=== PATIENT | female | born 1960 | race Caucasian/White ===

== ENCOUNTER → 2019-03-07 10:40 | Outpatient (CLI) | payer OTHER, SELFPAY ==
--- NOTE | 2019-03-07 10:44 | DI.RAD.S_ITS ---
PROCEDURE: XR CERVICAL SPINE 2V OR 3V INDICATIONS: Neck pain; hx of DJD and osteophytes TECHNIQUE: A set of 3 view(s) of the cervical spine were acquired. COMPARISON: None. FINDINGS: Bones: No fractures or dislocations to the T1 level. The lateral masses of C1 appear intact on the odontoid view. No suspicious bony lesions. Moderate degenerative disc disease is present at C4-5 and moderately severe degenerative disc disease is present at C5-6 through C6-7 and present to a slightly lesser degree at C7-T1. Soft tissues: No prevertebral soft tissue swelling. IMPRESSION: Multilevel degenerative disc disease and facet osteoarthritis from the middle third of the lower thirds of the cervical spine to the degree that spinal and foraminal stenosis likely is present from C4 inferiorly. Dictated by: Chung Marcum M.D. on 03/07/2019 at 11:15 Approved by: Chung Marcum M.D. on 03/07/2019 at 11:16
--- NOTE | 2019-03-07 10:44 | DI.RAD.S_ITS ---
PROCEDURE: XR THORACIC SPINE 3V INDICATIONS: T spine pain mid back; hx of DJD and osteophytes in C spine TECHNIQUE: 3 views of the thoracic spine were acquired. COMPARISON: None. FINDINGS: Bones: No fractures or dislocations. No suspicious bony lesions. 12 pairs of ribs are noted, and appear intact where visualized. Soft tissues: No paravertebral stripe thickening. IMPRESSION: Mild degenerative disc disease along the thoracic spine without fracture or subluxation. There is slight anterior wedging of the T11 vertebral body but this is within the range of normal anatomic variation. Dictated by: Chung Marcum M.D. on 03/07/2019 at 11:16 Approved by: Chung Marcum M.D. on 03/07/2019 at 11:17
== END ==
PROVIDERS: PCP Physician Assistant; Visit Provider Physician Assistant
DX: M54.2 Cervicalgia (principal); M54.6 Pain in thoracic spine; M50.323 Other cervical disc degeneration at C6-C7 level; M51.34 Other intervertebral disc degeneration, thoracic region
CPT/HCPCS: 72040; 72072

== ENCOUNTER → 2019-08-08 09:46 | Outpatient (CLI) | payer OTHER, SELFPAY ==
--- NOTE | 2019-08-08 09:49 | DI.US.S_ITS ---
PROCEDURE: US THYROID INDICATIONS: ELEVATED TSH TECHNIQUE: Real-time scanning was performed of the thyroid gland, with image documentation. COMPARISON: None. FINDINGS: Right: Thyroid lobe measures 4.4 x 0.8 x 1.8 cm, and is homogeneous in echotexture. Left: Thyroid lobe measures 4.4 x 0.9 x 1.3 cm, and is homogenous in echotexture. Isthmus: 1.5 mm thick. IMPRESSION: Normal thyroid. Dictated by: Jorge DUTTON Interpreted: Blanca Bermeo MD on 08/08/2019 at 13:40 Approved by: Blanca Bermeo M.D. on 08/08/2019 at 16:10
== END ==
PROVIDERS: PCP Physician Assistant; Visit Provider Physician Assistant
DX: E03.9 Hypothyroidism, unspecified (principal); R79.89 Other specified abnormal findings of blood chemistry
CPT/HCPCS: 76536

== ENCOUNTER → 2020-05-21 09:29 | Outpatient (CLI) | payer OTHER, SELFPAY ==
[2020-05-21 10:35] LABS: Cholesterol 249 mg/dL (140-199); Glucose 100 mg/dL (80-110); HDL Cholesterol 55 mg/dL (40-60); LDL Cholesterol Calculated 150 mg/dL (<100); Triglycerides 221 mg/dL (35-150)
[2020-05-21 10:50] LABS: Free T3, Triiodothyronine Free 3.32 pg/mL (2.77-5.27)
[2020-05-21 11:04] LABS: Thyroid Stimulating Hormone 2.89 uIU/mL (0.47-4.68)
[2020-05-21 13:49] LABS: Hemoglobin A1C% w Est Avg Glu 5.7 % (4.0-6.0)
[2020-05-22 09:30] LABS: Amylase 37 U/L (30-110); Lipase 65 U/L (23-300)
[2020-05-22 09:33] LABS: Rheumatoid Factor 9.5 IU/mL (<12.0)
[2020-05-22 09:41] LABS: Erythrocyte Sedimentation Rate 6 MM/HR (0-20)
== END ==
PROVIDERS: PCP Nurse Practitioner; Referring Provider Nurse Practitioner; Visit Provider Nurse Practitioner
DX: E03.9 Hypothyroidism, unspecified (principal); E78.2 Mixed hyperlipidemia; R73.09 Other abnormal glucose; R76.8 Other specified abnormal immunological findings in serum; R79.82 Elevated C-reactive protein (CRP); Z86.2 Personal history of diseases of the blood and blood-forming organs and certain disorders involving the immune mechanism
CPT/HCPCS: 36415; 80061; 82150; 82947; 83036; 83690; 84439; 84443; 84481; 85651; 86430

== ENCOUNTER → 2020-12-06 11:40 | Outpatient (CLI) | payer OTHER, SELFPAY ==
--- NOTE | 2020-12-06 | DI.MG.S_ITS ---
BILATERAL DIGITAL SCREENING MAMMOGRAM 3D/2D WITH CAD: 12/06/2020 CLINICAL: Routine screening. Family history of breast cancer. Comparison is made to exams dated: 10/18/2017 mammogram and 05/04/2019 mammogram - outside location. There are scattered fibroglandular elements in both breasts. Current study was also evaluated with a Computer Aided Detection (CAD) system. No significant masses, calcifications, or other findings are seen in either breast. There has been no significant interval change. IMPRESSION: NEGATIVE There is no mammographic evidence of malignancy. A 1 year screening mammogram is recommended. This exam was interpreted at Station ID: [id number]. NOTE: For mammograms, a report in lay terms will be sent to the patient. Approximately 15% of breast malignancies will not be visualized mammographically. In the management of a palpable breast mass, a negative mammogram must not discourage biopsy of a clinically suspicious lesion. Electronically Signed By: Mark miles/alexandre:12/06/2020 18:04:14 letter sent: Normal Exam ACR BI-RADS Category 1: Negative 3341F
== END ==
PROVIDERS: PCP Nurse Practitioner; Referring Provider Nurse Practitioner; Visit Provider Nurse Practitioner
DX: Z12.31 Encounter for screening mammogram for malignant neoplasm of breast (principal); Z80.3 Family history of malignant neoplasm of breast
CPT/HCPCS: 77063; 77067

== ENCOUNTER → 2021-04-15 12:10 | Outpatient (CLI) | payer OTHER, SELFPAY ==
--- NOTE | 2021-04-15 12:11 | DI.RAD.S_ITS ---
PROCEDURE: XR SHOULDER RT MIN 2V INDICATIONS: pain TECHNIQUE: 3 views of the shoulder were acquired. COMPARISON: None. FINDINGS: Bones: No acute fracture identified. Severe AC osteoarthritis. Mild glenohumeral osteoarthritis. Lateral downsloping appearance of the acromion. Soft tissues: No suspicious soft tissue calcifications. IMPRESSION: Lateral downsloping appearance of the acromion. Right shoulder osteoarthritis as above Dictated by: Abner Mendez M.D. on 04/15/2021 at 13:28 Approved by: Abner Mendez M.D. on 04/15/2021 at 13:29
== END ==
PROVIDERS: PCP Nurse Practitioner; Referring Provider Physician Assistant; Visit Provider Physician Assistant
DX: M25.511 Pain in right shoulder (principal); M19.011 Primary osteoarthritis, right shoulder
CPT/HCPCS: 73030

== ENCOUNTER → 2022-01-29 07:16 | Outpatient (CLI) | payer OTHER, SELFPAY ==
--- NOTE | 2022-01-29 | DI.MG.S_ITS ---
BILATERAL DIGITAL SCREENING MAMMOGRAM 3D/2D WITH CAD: 01/29/2022 CLINICAL: Routine screening. Family history of breast cancer. Comparison is made to exams dated: 12/06/2020 mammogram - [facility], 05/04/2019 mammogram, and 10/18/2017 mammogram - outside location. There are scattered fibroglandular elements in both breasts. Current study was also evaluated with a Computer Aided Detection (CAD) system. There are benign calcifications in both breasts. No significant masses, calcifications, or other findings are seen in either breast. There has been no significant interval change. IMPRESSION: BENIGN There is no mammographic evidence of malignancy. A 1 year screening mammogram is recommended. This exam was interpreted at Station ID: [id number]. NOTE: For mammograms, a report in lay terms will be sent to the patient. Approximately 15% of breast malignancies will not be visualized mammographically. In the management of a palpable breast mass, a negative mammogram must not discourage biopsy of a clinically suspicious lesion. Electronically Signed By: Mark miles/alexandre:01/29/2022 09:04:32 letter sent: Normal Exam ACR BI-RADS Category 2: Benign Finding(s) 3342F
== END ==
PROVIDERS: PCP Nurse Practitioner; Referring Provider Nurse Practitioner; Visit Provider Nurse Practitioner
DX: Z12.31 Encounter for screening mammogram for malignant neoplasm of breast (principal); Z80.3 Family history of malignant neoplasm of breast
CPT/HCPCS: 77063; 77067

== ENCOUNTER → 2022-10-26 10:42 | Outpatient (CLI) | payer OTHER, SELFPAY ==
--- NOTE | 2022-10-26 10:43 | DI.RAD.S_ITS ---
PROCEDURE: XR DEXA AXIAL SKELETON INDICATIONS: post menopausal osteoporosis COMPARISON: None. FINDINGS: This blank DEXA report has been sent in error by the PACS system. The correct and complete report will be forthcoming in 1-2 days. Thank you for your patience and understanding. Dictated by: Farzaneh Johnston MD, PhD on 10/27/2022 at 13:21 Approved by: Farzaneh Johnston MD, PhD on 10/27/2022 at 13:21
== END ==
PROVIDERS: PCP Nurse Practitioner; Referring Provider Nurse Practitioner; Visit Provider Nurse Practitioner
DX: Z13.820 Encounter for screening for osteoporosis (principal); Z78.0 Asymptomatic menopausal state; M85.88 Other specified disorders of bone density and structure, other site; Z90.710 Acquired absence of both cervix and uterus
CPT/HCPCS: 77080

== ENCOUNTER → 2023-01-01 08:17 | Outpatient (CLI) | payer OTHER, SELFPAY ==
[2023-01-01 09:07] LABS: Add Manual Diff / Slide Review NO; Basophils Absolute Auto 0 /uL (0-100); Basophils Percent Auto 0.7 % (0-2); Eosinophils Absolute Auto 100 /uL (0-450); Eosinophils Percent Auto 2.3 % (2-4); Hematocrit 34.3 % (36-46); Hemoglobin 11.6 g/dL (12.0-16.0); Lymphocytes Absolute Auto 1000 /uL (1100-4500); Lymphocytes Percent Auto 28.1 % (25-40); Mean Corpuscular HGB Conc 33.7 % (30-36); Mean Corpuscular Volume 91.8 fL (80-100); Monocytes Absolute Auto 300 /uL (0-900); Neutrophils Absolute Auto 2100 /uL (1500-7000); Neutrophils Percent Auto 60.9 % (50-75); Platelet Count 230 X10^3/uL (150-400); Red Blood Cell Count 3.74 X10^6/uL (4.0-5.2); White Blood Cell Count 3.5 X10^3/uL (4.5-11.0)
[2023-01-01 09:13] LABS: Hemoglobin A1C% w Est Avg Glu 5.2 % (4.0-6.0)
[2023-01-01 09:41] LABS: Alanine Aminotransferase 20 IU/L (<35); Albumin Globulin Ratio 1.5 (1.0-2.8); Alkaline Phosphatase 50 U/L (38-126); Aspartate Aminotransferase 24 IU/L (14-36); BUN Creatinine Ratio 22.8 (6-22); Bilirubin Total 0.4 mg/dL (0.2-1.3); Blood Urea Nitrogen 13 mg/dL (7-17); Calcium 8.7 mg/dL (8.4-10.2); Carbon Dioxide 28 mmol/L (22-32); Chloride 104 mmol/L (98-107); Cholesterol 229 mg/dL (140-199); Estimated Glomerular Filt Rate > 60 mL/min (>60); Globulin 2.6 g/dL (1.7-4.1); Glucose 99 mg/dL (80-110); HDL Cholesterol 66 mg/dL (40-60); HEMOLYSIS < 15 (0-50); LDL Cholesterol Calculated 146 mg/dL (<100); Potassium 4.5 mmol/L (3.4-5.1); Sodium 141 mmol/L (137-145); Total Protein 6.6 g/dL (6.3-8.2); Triglycerides 87 mg/dL (35-150)
[2023-01-01 10:12] LABS: Thyroid Stimulating Hormone 2.42 uIU/mL (0.47-4.68)
[2023-01-01 10:54] LABS: Hep C Virus Ab w/Reflex Quant NEGATIVE s/c (NEGATIVE)
== END ==
PROVIDERS: PCP Nurse Practitioner; Referring Provider Nurse Practitioner; Visit Provider Nurse Practitioner
DX: E78.2 Mixed hyperlipidemia (principal); Z00.00 Encounter for general adult medical examination without abnormal findings; E03.9 Hypothyroidism, unspecified; R73.03 Prediabetes; R73.01 Impaired fasting glucose; Z11.59 Encounter for screening for other viral diseases
CPT/HCPCS: 36415; 80053; 80061; 83036; 84443; 85025; 86803

== ENCOUNTER → 2023-02-04 08:40 | Outpatient (CLI) | payer OTHER, SELFPAY ==
--- NOTE | 2023-02-04 08:41 | DI.MG.S_ITS ---
BILATERAL DIGITAL SCREENING MAMMOGRAM 3D/2D WITH CAD: 02/04/2023 CLINICAL: Routine screening. Family history of breast cancer. Comparison is made to exams dated: 12/06/2020 mammogram, 01/29/2022 mammogram - [facility], and 05/04/2019 mammogram - outside location. There are scattered areas of fibroglandular density in both breasts (category b / 25%-50% glandular tissue). Current study was also evaluated with a Computer Aided Detection (CAD) system. There are benign calcifications in both breasts. There are mole markers on the left breast. No significant masses, calcifications, or other findings are seen in either breast. There has been no significant interval change. IMPRESSION: BENIGN There is no mammographic evidence of malignancy. A 1 year screening mammogram is recommended. Based on the Tyrer Cuzick model (a risk assessment model) the patient's lifetime risk is 15.3% and her 10 year risk is 7.0%. According to the ACR, ACS, and NCCN guidelines, an annual breast MRI exam along with mammogram is recommended if the patient's lifetime risk is 20% or greater. This exam was interpreted at Station ID: [id number]. NOTE: For mammograms, a report in lay terms will be sent to the patient. Approximately 15% of breast malignancies will not be visualized mammographically. In the management of a palpable breast mass, a negative mammogram must not discourage biopsy of a clinically suspicious lesion. Electronically Signed By: Waldo [email or web address]/alexandre:02/04/2023 09:30:47 letter sent: Normal Exam ACR BI-RADS Category 2: Benign Finding(s) 3342F
[2023-02-05 18:05] LABS: Fecal Immunochemical Test Negative (Negative)
== END ==
PROVIDERS: PCP Nurse Practitioner; Referring Provider Nurse Practitioner; Visit Provider Nurse Practitioner
DX: Z12.31 Encounter for screening mammogram for malignant neoplasm of breast (principal); Z80.3 Family history of malignant neoplasm of breast; Z12.11 Encounter for screening for malignant neoplasm of colon
CPT/HCPCS: 77063; 77067; 82274

== ENCOUNTER → 2023-10-19 11:32 | Outpatient (CLI) | payer OTHER, SELFPAY ==
[2023-10-19 15:18] LABS: Adenovirus Not Detected (Not Detect); B. parapertussis Not Detected (Not Detecte); Bordetella pertussis Not Detected (Not Detect); Chlamydophila pneumoniae Not Detected (Not Detect); Coronavirus 229E Not Detected (Not Detect); Coronavirus HKU1 Not Detected (Not Detect); Coronavirus NL 63 Not Detected (Not Detect); Coronavirus OC43 Not Detected (Not Detect); Human Metapneumovirus Not Detected (Not Detect); Human Rhinovirus/Enterovirus Not Detected (Not Detect); Influenza A Not Detected (Not Detect); Influenza B Not Detected (Not Detect); Mycoplasma pneumoniae Not Detected (Not Detect); Parainfluenza Virus 1 Not Detected (Not Detect); Parainfluenza Virus 2 Not Detected (Not Detect); Parainfluenza Virus 3 Not Detected (Not Detect); Parainfluenza Virus 4 Not Detected (Not Detect); Respiratory Syncytial Virus Not Detected (Not Detect); SARS- CoV-2 Not Detected (Not Detecte)
== END ==
PROVIDERS: PCP Nurse Practitioner; Visit Provider Nurse Practitioner
DX: J32.9 Chronic sinusitis, unspecified (principal)
CPT/HCPCS: 87633

== ENCOUNTER → 2023-10-25 11:06 | Outpatient (CLI) | payer OTHER, SELFPAY ==
--- NOTE | 2023-10-25 11:07 | DI.CT.S_ITS ---
PROCEDURE: CT SINUS SCREEN WO CON INDICATIONS: chronic sinsitis TECHNIQUE: Noncontrast 3.0 mm axial images acquired from the frontal sinuses to the mid-sella, with coronal and sagittal reformats. For radiation dose reduction, the following was used: automated exposure control, adjustment of mA and/or kV according to patient size. COMPARISON: None. FINDINGS: Image quality: Excellent. Sinuses: Minimal mucosal thickening is present within the maxillary sinuses. In addition, minimal scattered mucosal thickening is present in the ethmoid, frontal and sphenoid sinuses. No fluid levels. No mucous retention cysts versus polyps. Ostiomeatal Complexes: Ostiomeatal complexes are patent. Mild narrowing on the right secondary to nasal septal deviation. Miscellaneous: Visualized intra-orbital contents are normal. No fannie bullosa or paradoxical turbinate curvature. Prominent rightward there is hypertrophy of the inferior turbinates in relation to middle turbinates. nasal septal deviation. IMPRESSION: Prominent nasal septal deviation. Scattered areas of minimal mucosal thickening without fluid levels. Dictated by: Blanca Bermeo M.D. on 10/25/2023 at 16:14 Approved by: Blanca Bermeo M.D. on 10/25/2023 at 16:15
== END ==
PROVIDERS: PCP Nurse Practitioner; Referring Provider Nurse Practitioner; Visit Provider Nurse Practitioner
DX: J32.9 Chronic sinusitis, unspecified (principal); J34.2 Deviated nasal septum
CPT/HCPCS: 70486

== ENCOUNTER → 2024-01-14 08:25 | Outpatient (CLI) | payer OTHER, SELFPAY ==
--- NOTE | 2024-01-14 08:27 | DI.RAD.S_ITS ---
PROCEDURE: XR HIP W PEL IF DONE LT 2V INDICATIONS: Left hip pain TECHNIQUE: 2 views of the hip were acquired. COMPARISON: None. FINDINGS: Bones: No fractures or dislocations. No suspicious bony lesions. The visualized pelvic ring appears intact. Soft tissues: No suspicious soft tissue calcifications or masses. IMPRESSION: No displaced fracture. If there remains a high clinical concern or the patient cannot bear weight, consider cross-sectional imaging to exclude an occult fracture. Dictated by: Wili Mir M.D. on 01/14/2024 at 8:50 Approved by: Wili Mir M.D. on 01/14/2024 at 8:50
== END ==
PROVIDERS: PCP Nurse Practitioner; Referring Provider Registered Nurse; Visit Provider Registered Nurse
DX: M25.552 Pain in left hip (principal)
CPT/HCPCS: 73502

== ENCOUNTER → 2024-03-03 08:27 | Outpatient (CLI) | payer OTHER, SELFPAY ==
--- NOTE | 2024-03-03 08:29 | DI.MG.S_ITS ---
BILATERAL DIGITAL SCREENING MAMMOGRAM 3D/2D WITH CAD: 03/03/2024 CLINICAL: Routine screening. Family history of breast cancer. Comparison is made to exams dated: 02/04/2023 mammogram, 01/29/2022 mammogram, and 12/06/2020 mammogram - [facility]. There are scattered areas of fibroglandular density in both breasts (category b / 25%-50% glandular tissue). Current study was also evaluated with a Computer Aided Detection (CAD) system. There are benign calcifications in both breasts. There are mole markers on the left breast. No significant masses, calcifications, or other findings are seen in either breast. There has been no significant interval change. IMPRESSION: BENIGN There is no mammographic evidence of malignancy. A 1 year screening mammogram is recommended. Based on the Tyrer Cuzick model (a risk assessment model) the patient's lifetime risk is 14.8% and her 10 year risk is 7.0%. According to the ACR, ACS, and NCCN guidelines, an annual breast MRI exam along with mammogram is recommended if the patient's lifetime risk is 20% or greater. This exam was interpreted at Station ID: [id number]. NOTE: For mammograms, a report in lay terms will be sent to the patient. Approximately 15% of breast malignancies will not be visualized mammographically. In the management of a palpable breast mass, a negative mammogram must not discourage biopsy of a clinically suspicious lesion. Electronically Signed By: Mark miles/alexandre:03/03/2024 16:34:15 letter sent: Normal Exam ACR BI-RADS Category 2: Benign Finding(s) 3342F
== END ==
LOC: MAMMO 08:28
PROVIDERS: PCP Nurse Practitioner; Referring Provider Nurse Practitioner; Visit Provider Nurse Practitioner
DX: Z12.31 Encounter for screening mammogram for malignant neoplasm of breast (principal); Z80.3 Family history of malignant neoplasm of breast; R92.323 Mammographic fibroglandular density, bilateral breasts
CPT/HCPCS: 77063; 77067

== ENCOUNTER → 2024-07-14 09:30 | Outpatient (CLI) | payer OTHER, SELFPAY ==
[2024-07-14 10:11] LABS: Add Manual Diff / Slide Review NO; Basophils Absolute Auto 0 /uL (0-100); Eosinophils Absolute Auto 200 /uL (0-450); Eosinophils Percent Auto 3.9 % (2-4); Hematocrit 40.6 % (36-46); Lymphocytes Absolute Auto 1500 /uL (1100-4500); Lymphocytes Percent Auto 32.6 % (25-40); Mean Corpuscular HGB Conc 34.6 % (30-36); Mean Corpuscular Hemoglobin 30.4 PG (26-34); Mean Corpuscular Volume 87.8 fL (80-100); Monocytes Absolute Auto 400 /uL (0-900); Monocytes Percent Auto 8.6 % (3-14); Neutrophils Absolute Auto 2500 /uL (1500-7000); Neutrophils Percent Auto 53.9 % (50-75); Platelet Count 266 X10^3/uL (150-400); Red Blood Cell Count 4.62 X10^6/uL (4.0-5.2); Red Cell Distribution Width 13.2 % (11.6-14.8); White Blood Cell Count 4.6 X10^3/uL (4.5-11.0)
[2024-07-14 10:29] LABS: Alanine Aminotransferase 18 IU/L (<35); Albumin 4.4 g/dL (3.5-5.0); Albumin Globulin Ratio 1.7 (1.0-2.8); Alkaline Phosphatase 59 U/L (38-126); Aspartate Aminotransferase 25 IU/L (14-36); BUN Creatinine Ratio 15.9 (6-22); Blood Urea Nitrogen 10 mg/dL (7-17); Calcium 9.4 mg/dL (8.4-10.2); Carbon Dioxide 26 mmol/L (22-32); Chloride 105 mmol/L (98-107); Cholesterol 235 mg/dL (140-199); Estimated Glomerular Filt Rate > 60 mL/min (>60); Globulin 2.6 g/dL (1.7-4.1); Glucose 98 mg/dL (80-110); HDL Cholesterol 54 mg/dL (40-60); HEMOLYSIS < 15 (0-50); LDL Cholesterol Calculated 148 mg/dL (<100); Potassium 4.1 mmol/L (3.4-5.1); Sodium 139 mmol/L (137-145); Triglycerides 165 mg/dL (35-150)
[2024-07-14 10:30] LABS: Creatinine Urine Random 30.19 mg/dL
[2024-07-14 10:34] LABS: Microalbumin Urine Random < 0.6 mg/dL (0-1.6)
[2024-07-14 10:48] LABS: Free T3, Triiodothyronine Free 4.94 pg/mL (2.77-5.27)
[2024-07-14 11:03] LABS: Thyroid Stimulating Hormone < 0.015 uIU/mL (0.47-4.68)
[2024-07-14 11:09] LABS: HIV 1 & 2 Ab/Ag 4th Gen Combo NEGATIVE (NEGATIVE)
== END ==
PROVIDERS: PCP Nurse Practitioner; Referring Provider Nurse Practitioner; Visit Provider Nurse Practitioner
DX: Z00.00 Encounter for general adult medical examination without abnormal findings (principal); Z11.4 Encounter for screening for human immunodeficiency virus [HIV]
CPT/HCPCS: 36415; 80053; 80061; 82043; 82570; 84439; 84443; 84481; 85025; 87389

== ENCOUNTER → 2024-11-28 09:42 | Outpatient (CLI) | payer MEDICARE, OTHER, SELFPAY ==
--- NOTE | 2024-11-28 09:43 | DI.RAD.S_ITS ---
PROCEDURE: XR DEXA AXIAL SKELETON INDICATIONS: routine screening COMPARISON: [facility], [facility], XR DEXA AXIAL SKELETON, 10/26/2022, 10:56. FINDINGS: Lumbar Spine: Bone mineral density 0.853 g/cm2, T score -1.8, osteopenia. Left Hip: Bone mineral density 0.709 g/cm2, T score -1.9, osteopenia. Left Femoral Neck: Bone mineral density 0.629 g/cm2, T score -2.0, osteopenia. Fracture Risk Calculation (when applicable): 10-year fracture risk of a major osteoporotic fracture 10 percent and of a hip fracture 1.5 percent. (T score greater or equal to -1.0 to: NORMAL) (T score from -1.1 to -2.4: OSTEOPENIA) (T score less than or equal to -2.5: OSTEOPOROSIS) IMPRESSION: Moderate osteopenia Follow-up guidelines as follows: Osteoporosis: Consider a repeat DEXA and Vertebral Fracture Assessment (VFA) exam in 2 years or sooner if medically necessary, to reassess this patient's status. Osteopenia: Consider a repeat DEXA in 2-3 years to reassess this patient's status, or if there is a new clinical indication. Normal: Consider a repeat DEXA in 5 years or sooner, or if there is a new clinical indication. All treatment decisions require clinical judgment and consideration of individual patient factors, including patient preferences, comorbidities, previous drug use, risk factors not captured in the FRAX model (e.g., frailty, falls, vitamin D deficiency, increased bone turnover, interval significant decline in bone density ) and possible under- or over-estimation of fracture risk by FRAX. In addition, the NOF Guide recommends that FDA-approved medical therapies be considered in postmenopausal women and men age >= 50 years with a: * Hip or vertebral (clinical or morphometric) fracture * T-score of <=-2.5 at the spine or hip * Ten-year fracture probability by FRAX of >= 3% for hip fracture or >=20% for major osteoporotic fracture. People with diagnosed cases of osteoporosis or at high risk for fracture should have regular bone mineral density tests. For patients eligible for Medicare, routine testing is allowed once every 2 years. The testing frequency can be increased to one year for patients who have rapidly progressing disease, those who are receiving or discontinuing medical therapy to restore bone mass, or have additional risk factors. Dictated by: Rey Trevino M.D. on 11/28/2024 at 20:29 Approved by: Rey Trevino M.D. on 11/28/2024 at 20:31
== END ==
PROVIDERS: PCP Family Medicine; Referring Provider Family Medicine; Visit Provider Family Medicine
DX: M85.89 Other specified disorders of bone density and structure, multiple sites (principal)
CPT/HCPCS: 77080

== ENCOUNTER → 2025-03-19 15:08 | Outpatient (CLI) | payer MEDICARE, OTHER, SELFPAY ==
--- NOTE | 2025-03-19 15:09 | DI.MG.S_ITS ---
MM screening mammo BI: 03/19/2025. BI-RADS: 0 CLINICAL: 64-year old female for bilateral screening mammogram. Tyrer-Cuzick lifetime risk of 15.5%. Current reported family history of breast cancer: mother. PRIOR EXAMS 03/03/2024, 02/04/2023, 01/29/2022, 12/06/2020. MAMMOGRAPHY TECHNIQUE: 2D and 3D (tomosynthesis) digital mammographic views obtained, with additional images as needed for full coverage. Current study was also evaluated with a Computer Aided Detection (CAD) system. DENSITY B. There are scattered areas of fibroglandular density. MAMMOGRAPHY FINDINGS Right: Outer at 9:00, Middle depth, measuring 0.5 cm: Focal asymmetry needing additional imaging evaluation. Right: Benign-appearing calcifications noted on the right. Left: Benign-appearing calcifications noted on the left. There are no suspicious masses, calcifications, or other findings in the breast. IMPRESSION: Right (Asymmetry): Outer at 9:00, Middle depth, measuring 0.5 cm * Incomplete - focal asymmetry needing additional imaging evaluation. Left * No evidence of malignancy with benign findings. RECOMMENDATIONS Right: Outer at 9:00, Middle depth * Further evaluation with diagnostic mammography and diagnostic ultrasound. Ultrasound to be performed only if needed. OVERALL ASSESSMENT CATEGORY BI-RADS-0: Incomplete - Need Additional Imaging Evaluation. ELECTRONICALLY SIGNED: Rey Trevino M.D. on 03/19/2025 at 07:55:23 PM PT Interpreting Station ID: [id number]
== END ==
PROVIDERS: PCP Family Medicine; Referring Provider Family Medicine; Visit Provider Family Medicine
DX: Z12.31 Encounter for screening mammogram for malignant neoplasm of breast (principal); Z80.3 Family history of malignant neoplasm of breast
CPT/HCPCS: 77063; 77067

== ENCOUNTER → 2025-04-18 08:43 | Outpatient (CLI) | payer MEDICARE, OTHER, SELFPAY ==
--- NOTE | 2025-04-18 08:45 | DI.MG.S_ITS ---
US breast RT limited, MM diagnostic mammo unilat RT: 04/18/2025 BI-RADS: 2 CLINICAL: 64-year old female for right diagnostic mammogram and right diagnostic breast ultrasound that is a recall from screening on 03/19/2025. Tyrer-Cuzick lifetime risk of 15.5%. Current reported family history of breast cancer: mother. PRIOR EXAMS Mammogram(s): 03/19/2025. Four Other Exams on 03/03/2024, 02/04/2023, 01/29/2022, 12/06/2020. MAMMOGRAPHY TECHNIQUE: 2D and 3D (tomosynthesis) digital mammographic views obtained, with additional images as needed for full coverage. Current study was also evaluated with a Computer Aided Detection (CAD) system. ULTRASOUND TECHNIQUE TARGETED Right Breast Ultrasound: Real-time ultrasound exam was performed focused to area of clinical and/or imaging concern. Real-time montoya scale and color doppler imaging of the area of clinical interest was performed with image documentation. DENSITY Right: B. There are scattered areas of fibroglandular density. MAMMOGRAPHY FINDINGS Right (finding-1): Upper Outer at 10:00, Middle depth, measuring 0.5cm. Previous report: Outer at 9:00: There is a focal asymmetry present. ULTRASOUND FINDINGS Right (finding-1): Upper Outer at 10:00, 4 cm from nipple, measuring 0.5 x 3 x 0.4 cm. Previous report: Outer at 9:00: Correlating with findings on mammogram there is a simple cyst. IMPRESSION: Right * No evidence of malignancy with benign findings. RECOMMENDATIONS Bilateral * Annual screening mammography. COMMENTS: Findings and recommendations were conveyed to the patient during today's evaluation. OVERALL ASSESSMENT CATEGORY BI-RADS-2: Benign. The [employer] recommends annual screening mammography beginning at age 40 for women with average risk of breast cancer. ELECTRONICALLY SIGNED: Akosua Salazar M.D. on 04/19/2025 at 12:03:58 AM PT Interpreting Station ID: [id number]
== END ==
LOC: MAMMO 08:45
PROVIDERS: PCP Family Medicine; Referring Provider Family Medicine; Visit Provider Family Medicine
DX: Z00.00 Encounter for general adult medical examination without abnormal findings (principal); R92.8 Other abnormal and inconclusive findings on diagnostic imaging of breast; N60.01 Solitary cyst of right breast; E03.9 Hypothyroidism, unspecified; R73.01 Impaired fasting glucose; Z80.3 Family history of malignant neoplasm of breast
CPT/HCPCS: 36415; 76642; 77065; 80053; 82607; 83540; 83550; 83690; 84439; 84443; 85025; G0279

== ENCOUNTER → 2025-04-18 10:02 | Outpatient (CLI) | payer MEDICARE, OTHER, SELFPAY ==
[2025-04-18 11:02] LABS: Add Manual Diff / Slide Review NO; Basophils Absolute Auto 0 /uL (0-100); Basophils Percent Auto 0.6 % (0-2); Eosinophils Absolute Auto 100 /uL (0-450); Eosinophils Percent Auto 1.5 % (2-4); Hematocrit 41.8 % (36-46); Hemoglobin 14.3 g/dL (12.0-16.0); Lymphocytes Absolute Auto 1900 /uL (1100-4500); Lymphocytes Percent Auto 33.1 % (25-40); Mean Corpuscular HGB Conc 34.3 % (30-36); Mean Corpuscular Hemoglobin 30.1 PG (26-34); Mean Corpuscular Volume 87.9 fL (80-100); Monocytes Absolute Auto 400 /uL (0-900); Monocytes Percent Auto 6.8 % (3-14); Neutrophils Absolute Auto 3300 /uL (1500-7000); Platelet Count 249 X10^3/uL (150-400); Red Blood Cell Count 4.75 X10^6/uL (4.0-5.2); Red Cell Distribution Width 13.8 % (11.6-14.8); White Blood Cell Count 5.8 X10^3/uL (4.5-11.0)
[2025-04-18 11:42] LABS: Alanine Aminotransferase 17 IU/L (<35); Albumin 4.2 g/dL (3.5-5.0); Albumin Globulin Ratio 1.7 (1.0-2.8); Alkaline Phosphatase 84 U/L (38-126); Aspartate Aminotransferase 25 IU/L (14-36); BUN Creatinine Ratio 20.9 (6-22); Bilirubin Total 1.1 mg/dL (0.2-1.3); Blood Urea Nitrogen 14 mg/dL (7-17); Calcium 9.3 mg/dL (8.4-10.2); Carbon Dioxide 28 mmol/L (22-32); Chloride 105 mmol/L (98-107); Estimated Glomerular Filt Rate > 60 mL/min (>60); Globulin 2.5 g/dL (1.7-4.1); Glucose 94 mg/dL (70-99); HEMOLYSIS < 15 (0-50); Lipase 44 U/L (23-300); Potassium 4.4 mmol/L (3.4-5.1); Sodium 138 mmol/L (137-145); Total Protein 6.7 g/dL (6.3-8.2)
[2025-04-18 11:45] LABS: HEMOLYSIS < 15 (0-50); Iron 200 ug/dL (37-170)
[2025-04-18 11:58] LABS: Percent Iron Saturation 61 % (15-50); Total Iron Binding Capacity 327 ug/dL (265-497); Transferrin 282 mg/dL (206-381)
[2025-04-18 11:59] LABS: Free T4, Direct Thyroxine 1.55 ng/dL (0.78-2.19)
[2025-04-18 12:32] LABS: Vitamin B12 394 pg/mL (239-931)
== END ==
PROVIDERS: PCP Family Medicine; Referring Provider Family Medicine; Visit Provider Family Medicine
DX: E03.9 Hypothyroidism, unspecified (principal); Z00.00 Encounter for general adult medical examination without abnormal findings; R73.01 Impaired fasting glucose
CPT/HCPCS: 36415; 80053; 82607; 83540; 83550; 83690; 84439; 84443; 85025

== ENCOUNTER → 2025-11-07 08:55 | Outpatient (CLI) | payer MEDICARE, OTHER, SELFPAY ==
--- NOTE | 2025-11-07 08:57 | DI.RAD.S_ITS ---
PROCEDURE: XR CERVICAL SPINE 2V OR 3V INDICATIONS: Symmetrical left greater than right increasing upper extremi TECHNIQUE: 3 view(s) of the cervical spine were acquired. COMPARISON: [facility], CR, XR CERVICAL SPINE 2V OR 3V, 03/07/2019, 10:46. FINDINGS: Bones: No fractures or dislocations to the T1 level. The lateral masses of C1 appear intact on the odontoid view. Loss of lordosis which could be related to muscle spasm, rigidity or simply positional. Multilevel disc height loss with endplate sclerosis and spurring, most notably and moderate to severe at the C5-C6, C6-C7 and C7-T1 levels. Moderate multilevel mid and lower cervical spine facet joint arthropathy. Moderate multilevel uncovertebral hypertrophy. No suspicious bony lesions. Soft tissues: No prevertebral soft tissue swelling. IMPRESSION: Loss of lordosis and multilevel cervical spine spondylosis. Findings similar prior cervical spine series dated 03/07/2019. Dictated by: Jorge DUTTON Interpreted: Wili Mir MD on 11/07/2025 at 10:54 Approved by: Wili Mir M.D. on 11/07/2025 at 14:59
== END ==
PROVIDERS: PCP Family Medicine; Referring Provider Family Medicine; Visit Provider Family Medicine
DX: M47.22 Other spondylosis with radiculopathy, cervical region (principal)
CPT/HCPCS: 72040